=== PATIENT | male | born 1940 | race Caucasian/White ===

== ENCOUNTER 2020-09-28 17:54 | Emergency (ER) | payer MEDICARE, OTHER ==
--- NOTE | 2020-09-28 18:10 | ED ---
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 Patient reportedly just rolled out of the chair. There is no reported loss of consciousness. Apparently the patient complained of neck pain initially which is why EMS was called. EMS stated that the patient did not complain of any neck pain to them. The patient is unable to provide much history because of his severe aphasia. When I asked him if he has any pain he shakes his head no. When asked if he lost consciousness he shakes his head no. - Related Data Previous Rx's Medication Instructions Recorded Aspirin 650 mg PO DAILY PRN #100 tab 02/19/14 Nystatin 100,000 Unit/gm Powd 1 applic TOPICAL BID #60 powder 02/19/14 [Mycostatin Powder] SILVER sulfADIAZINE CREAM 1 applic TOPICAL BID #100 gram 02/19/14 [Silvadene Cream] Allergies Allergy/AdvReac Type Severity Reaction Status Date / Time No Known Allergies Allergy Verified 09/28/20 18:12 Review of Systems ROS Statement: Those systems with pertinent positive or pertinent negative responses have been documented in the HPI. ROS Other: All systems not noted in ROS Statement are negative. 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 History of Any Multi-Drug Resistant Organisms: None Reported Past Surgical History: Back Surgery Additional Past Surgical History / Comment(s): back trach Past Psychological History: No Psychological Hx Reported Past Alcohol Use History: None Reported Past Drug Use History: None Reported - Past Family History Father Family Medical History: Diabetes Mellitus General Exam - General Exam Comments Initial Comments: Constitutional: Awake alert Appears comfortable Head: Normocephalic atraumatic Eyes: no conjunctival injection No scleral icterus EOMI, pupils are 2 mm and reactive bilaterally Neck: No JVD Supple, no midline neck tenderness on exam Heart: Regular rate rhythm normal S1-S2 no murmurs Lungs: Clear to auscultation bilaterally No wheezing No rales Abdomen: Soft nondistended nontender Extremities: Non edematous DP pulses intact Radial pulses intact, no tenderness to palpation in the extremities, negative pain in the lower [place] with log rolling Neuro: He is awake and alert however unable to move any of his extremities or speak which is baseline per EMS. No focal neurologic deficits Psych: Appropriate mood and affect Course Vital Signs 09/28/20 09/28/20 09/28/20 17:59 18:06 18:15 Temperature 98.3 F 98.3 F Pulse Rate 79 86 81 Respiratory 20 20 16 Rate Blood Pressure 121/76 121/76 116/62 O2 Sat by Pulse 95 96 96 Oximetry 09/28/20 19:21 Temperature Pulse Rate 86 Respiratory 18 Rate Blood Pressure 116/62 O2 Sat by Pulse 95 Oximetry Medical Decision Making - Medical Decision Making This is an 80-year-old male presents emergency department for a fall. The patient did not indicate he had any complaints. CT of the head and neck were performed and unremarkable. The patient is stable to go back to his facility. Disposition Clinical Impression: Fall Disposition: HOME SELF-CARE Condition: Stable Instructions (If sedation given, give patient instructions): Fall Prevention (ED), Fall Prevention for Older Adults (ED) Is patient prescribed a controlled substance at d/c from ED?: No If prescribed controlled substance>3 days was MAPS reviewed?: No Referrals: Alexis Polanco MD [Primary Care Provider] - 1-2 days
--- NOTE | 2020-09-28 19:00 | CT ---
EXAMINATION TYPE: CT brain sharlene saeed DATE OF EXAM: 09/28/2020 COMPARISON: None HISTORY: Fall. Headache. Neck pain CT DLP: 1698.7 mGycm Automated exposure control for dose reduction was used. There is moderate diffuse cerebral atrophy. There is no mass effect nor midline shift. There is no si gn of intracranial hemorrhage. There is enlargement of the ventricles. There is moderate patchy hypod ensity in the periventricular white matter. There is left parietal craniotomy defects. Skull base is intact. There is some mild cervical kyphotic curvature. There is degenerative disc space narrowing in the low er cervical spine. There is no compression fracture. There is multilevel hypertrophic cervical facet arthropathy. This is worse on the right side. I see no focal bone destruction. IMPRESSION: Cerebral atrophy and chronic small vessel ischemia. No acute intracranial abnormality. 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 No fracture seen.
[2020-09-28 19:22] VITALS: RESP 18
[2020-09-28 20:45] VITALS: BP 121/65; PULSE 88; TEMP 97
== END 2020-09-28 20:40 | disposition home or self-care (01) ==
LOC: EC 17:54
DX: M54.2 Cervicalgia (principal); M81.0 Age-related osteoporosis without current pathological fracture; Z87.820 Personal history of traumatic brain injury; W07.XXXA Fall from chair, initial encounter; Y92.129 Unspecified place in nursing home as the place of occurrence of the external cause
CPT/HCPCS: 70450; 72125; 99284